=== PATIENT | male | born 1995 | race Two or more races ===

== ENCOUNTER 2018-10-30 20:42 | Emergency (ER) | payer SELFPAY ==
[~2018-10-30] VITALS: Ht 172.7 cm; Wt 104.0 kg
[2018-10-30] MEDS ORDERED: HYDROCODONE/ACETAMINOPHEN 5/325MG TABLET PO STA (21:52)
[2018-10-30] MEDS ORDERED: HYDROCODONE/ACETAMINOPHEN 5/325MG TABLET PO ONE (23:15)
[2018-10-30] MEDS ORDERED: MORPHINE SULFATE 4 MG/ML CPJ (NOT FOR IM USE) IV ONE (23:45)
[2018-10-30] MEDS ORDERED: CEFAZOLIN 1000MG PREMIX 50 ML IV ONE (23:45)
[2018-10-30] MEDS ORDERED: ONDANSETRON HCL 4MG/2ML INJ IV ONE (23:45)
[2018-10-31 06:29] VITALS: BP 104/59
== END 2018-10-31 06:45 | disposition left against medical advice (07) ==
LOC: ER 20:42
DX: S56.125A Laceration of flexor muscle, fascia and tendon of right ring finger at forearm level, initial encounter (principal); S56.021A Laceration of flexor muscle, fascia and tendon of right thumb at forearm level, initial encounter; Z98.890 Other specified postprocedural states; W01.0XXA Fall on same level from slipping, tripping and stumbling without subsequent striking against object, initial encounter; Y93.89 Activity, other specified; Y92.89 Other specified places as the place of occurrence of the external cause; Y99.8 Other external cause status
CPT/HCPCS: 12004; 73130; 96365; 96375; 99284; J0690; J2270; J2405; Z7610